=== PATIENT | female | born 1945 | race African-American/Black ===

== ENCOUNTER 2016-08-24 07:04 | Day surgery (SDC) | payer OTHER ==
[2016-08-22 10:12] VITALS: BMI 39.7
[2016-08-24] MEDS ORDERED: BUPIVACAINE HCL/PF 2.5 MG/ML - 30 ML VIAL IJ ONE (07:13)
[2016-08-24] MEDS ORDERED: PROPOFOL 20 ML ONE (09:09)
[2016-08-24] MEDS ORDERED: SUCCINYLCHOLINE CHLORIDE 200 MG/10 ML VIAL ONE (09:09)
[2016-08-24] MEDS ORDERED: ROCURONIUM BROMIDE 50 MG/5 ML VIAL ONE (09:09)
[2016-08-24] MEDS ORDERED: DESFLURANE GAS 240 ML BOTTLE IH ONE (09:26)
[2016-08-24] MEDS ORDERED: BUPIVACAINE HCL/PF 0.25% (2.5MG/ML) 10 ML VIAL IJ ONE (09:47)
[2016-08-24] MEDS ORDERED: oxyCODONE HCL 5 MG TABLET PO PRN (10:04)
[2016-08-24] MEDS ORDERED: LACTATED RINGERS SOLUTION 1,000 ML IV SCH (10:15)
[2016-08-24] MEDS ORDERED: oxyCODONE HCL 5 MG TABLET ONE (11:16)
[2016-08-24 11:28] VITALS: TEMP 97.7
[2016-08-24] MEDS ORDERED: ONDANSETRON *ODT* 4 MG TABLET ONE (12:36)
[2016-08-24 14:03] VITALS: PULSE 86
[2016-08-24 14:07] VITALS: BP 132/64
[2016-08-24] MEDS ORDERED: ONDANSETRON *ODT* 4 MG TABLET SL ONE (14:30)
--- NOTE | 2016-08-26 23:22 | OP ---
DATE OF OPERATION: 08/24/2016 SURGEON: Ba Lopez M.D. WATER PLUMBER: Ella Issa PREOPERATIVE DIAGNOSIS: 1. Right knee medial and lateral meniscal tear. 2. Right knee cartilage injury. 3. Right knee synovitis. POSTOPERATIVE DIAGNOSIS: 1. Right knee medial and lateral meniscal tear. 2. Right knee cartilage injury. 3. Right knee synovitis. PROCEDURE: 1. Right knee arthroscopy, partial meniscectomy, medial and lateral meniscus. 2. Right knee arthroscopy with chondroplasty and abrasion plasty. 3. Right knee arthroscopy, CPT code 08416, 53248, 25617. FINDINGS: 1. Medial meniscus body and posterior horn tear. 2. Lateral meniscus body tear. 3. Synovitis patella femoral medial and lateral notch area. 4. Medial 1/3 anterior tibial plateau grade 2-4 changes. 5. ACL and PCL intact. 6. Grade 1 to 2 cartilage injury diffuse lat joint. 7. Grade 1 to 2 cartilage injury patella, grade 2-4 changes patella femoral trochlea. PROCEDURE: Informed consent was obtained. The patient was taken to the operating room where the right lower extremity was prepped and draped in a sterile fashion. A tourniquet was placed on the right upper thigh but not inflated. Using standard arthroscopic technique, a lateral incision and portal were made which allowed for introduction of the camera into the suprapatellar bursa. This was then taken to the medial joint line where under direct visualization, a medial incision and portal were made. Excessive synovium noted in the medial, lateral, patellofemoral and notch area was removed by the up-biting shaver and Bovie cautery. This was found to bring inflammatory tissue into the joint surface, a source of joint pain and dysfunction. Probing of the medial and lateral meniscus found tears described in the findings. These were removed with an up-biting shaver and taken back to a stable rim. Grade 2-3 degenerative changes were treated with chondroplasty, removing all flaking surfaces with low setting Bovie used along the periphery. Grade 4 changes were treated with abrasion-plasty. All areas of the knee were once again re-examined. The knee was then drained. A single suture was placed on all portals. Sterile dressing was placed. The patient was transferred to the recovery room. BA LOPEZ M.D. MONIKA/[id number] MTDD
--- NOTE | 2016-08-28 16:19 | PATH ---
Surgical Pathology Report Patient Name: MIGUEL SANTANA [facility]. Rec. #: [id number] /Age/Gender: 1945 (Age: 71) / F Account: [id number] Location: [facility] Taken: 08/24/2016 Received: 08/24/2016 Reported: 08/28/2016 Physicians: Ba Ramos M.D. Specimen(s) Received RIGHT KNEE SHAVINGS Clinical History Right knee internal derangement Final Diagnosis KNEE, RIGHT, ARTHROSCOPIC SHAVINGS: FIBROSYNOVIAL AND FIBROCOLLAGENOUS TISSUE. Electronically Signed Bettina Howe M.D. Gross Description Received in formalin, labeled "right knee shavings," is a 4.0 x 3.2 x 0.3 cm. aggregate of reaves-yellow soft tissue fragments. A associate financial representative portion is submitted in one cassette. /08/24/201608/24/2016
== END 2016-08-24 13:30 | disposition home or self-care (01) ==
LOC: FASU 07:04
PROVIDERS: ATTEND Orthopaedic Surgery
PROC: 0SBC4ZZ Excision of Right Knee Joint, Percutaneous Endoscopic Approach (ICD-10-PCS; 2016-08-24)
PROC: 0SBC4ZZ Excision of Right Knee Joint, Percutaneous Endoscopic Approach (ICD-10-PCS; 2016-08-24)
PROC: 0SBC4ZZ Excision of Right Knee Joint, Percutaneous Endoscopic Approach (ICD-10-PCS; principal; 2016-08-24 08:30)
DX: S83.241A Other tear of medial meniscus, current injury, right knee, initial encounter (principal); S83.281A Other tear of lateral meniscus, current injury, right knee, initial encounter; S83.8X1A Sprain of other specified parts of right knee, initial encounter; M65.861 Other synovitis and tenosynovitis, right lower leg; X58.XXXA Exposure to other specified factors, initial encounter; Y93.9 Activity, unspecified; Y92.9 Unspecified place or not applicable
CPT/HCPCS: 88304-TC

== ENCOUNTER 2016-10-29 17:29 | Inpatient (IN) | payer OTHER ==
--- NOTE | 2016-10-29 17:53 | PDOC ---
History of Present Illness <Daysi Vigil - Last Filed: 10/29/16 19:12> - General History Source: Patient Exam Limitations: No Limitations - History of Present Illness Initial Comments: 10/29/16 18:25 71y/o F HTN, dm, high chol, CVA in the past presents referred from [facility] for evaluation of headache, r/o cva. Pt was in her usonh, went to bed around 10pm, awoke at 1am and 5am feeling well, then awoke at 1030am with severe L frontal headache also retro-orbital. n/v x2 nbnb, no vision change/speech change/focal weakness. no cp/sob/palp. Pt has h/o migraines in similar location but never to this severity. Pt went to [place] [facility] but [facility], went to her PMD at [facility] and was referred to ED for evaluation. Pt's headache has essentially resolved, she has a dull ache to her L roman catholic. <Virgil Borja - Last Filed: 10/29/16 20:03> - General Stated Complaint: CVA/TIA Time Seen by Provider: 10/29/16 17:46 NIH Stroke Scale - Last Known Well Date/Time & Onset Date Last Known Well: 10/29/16 Time Last Known Well: 05:00 - Initial Evaluation Level of consciousness: Alert Ask patient the month and their age: Answers both correctly Ask patient to open & close eyes; make fist and let go: Obeys both correctly Best gaze (horizontal eye movement): Normal Visual field testing: No visual field loss Facial paresis (Show teeth/raise eyebrows/close eyes tight): Normal symmetrical movement Motor Function: Left Arm: Normal Motor Function: Right Arm: Normal (extends arm 90 (or 45) degrees for 10 seconds without drift Motor Function: Left Leg: Normal (extends leg 30 degrees for 5 seconds without drift) Motor Function: Right Leg: Normal (extends leg 30 degrees for 5 seconds without drift) Limb Ataxia: No ataxia Sensory(Use pinprick test arms,legs,trunk,face/side to side): Normal Best language (Describe picture, name items, read sentences): No Aphasia Dysarthria (read several words): Normal articulation Extinction and Inattention: No abnormality - Total Score NIH Stroke Scale Score: 0 <Virgil Borja - Last Filed: 10/29/16 20:03> tPA Exclusion checklist 3-4.5h - Ineligibility reason(s) Reasons No tPA given: Outside of window - delayed arrival <Virgil Borja - Last Filed: 10/29/16 20:03> Past History <DanielleadrianoDaysi french - Last Filed: 10/29/16 19:12> - Past Medical History Anemia: No Asthma: No Cancer: No Cardiac Disorders: No CVA: Yes ('MINOR STROKE " 10 YRS AGO) COPD: No CHF: No Dementia: No Diabetes: Yes (OVER 7 YEARS) GI Disorders: No Disorders: No HTN: Yes Hypercholesterolemia: No Liver Disease: No Seizures: No Thyroid Disease: No - Surgical History Abdominal Surgery: Yes (UMBILICAL HERNIA REPAIR) Appendectomy: No Cardiac Surgery: No Cholecystectomy: Yes Lung Surgery: No Neurologic Surgery: No Orthopedic Surgery: Yes (LEFT ROTATOR CUFF REPAIR) - Psycho/Social/Smoking Cessation Hx Smoking History: Former smoker Have you smoked in the past 12 months: No If you are a former smoker, when did you quit?: 40 YRS AGO Hx Alcohol Use: Yes (SOCIALLY) Substance Use Type: Alcohol Hx Substance Use Treatment: No <Virgil Borja - Last Filed: 10/29/16 20:03> - Past Medical History Allergies/Adverse Reactions: Allergies Allergy/AdvReac Type Severity Reaction Status Date / Time Penicillins Allergy Severe Swelling Verified 08/22/16 09:59 Home Medications: Ambulatory Orders Amlodipine Besylate 5 mg PO DAILY 08/22/16 Aspirin [ASA -] 81 mg PO DAILY 08/22/16 Glucosamine Sulfate Dipot Chlr [Glucosamine] 1,000 mg PO DAILY 08/22/16 Insulin Glargine,Hum.rec.anlog [Lantus Solostar PEN -] 35 units SQ DAILY Multivit-Min/FA/Lycopen/Lutein [Centrum Silver Tablet] 1 each PO DAILY 08/22/16 Pioglitazone HCl/Metformin HCl [Actoplus Met 15 mg-850 mg Tab] 1 each PO DAILY 08/22/16 Valsartan/Hydrochlorothiazide [Valsartan-Hctz 160-12.5 mg Tab] 1 each PO DAILY 08/22/16 Hydrocodone/Acetaminophen [Shawnee 5-325 Tablet] 1 each PO Q6H PRN #40 tablet MDD 4 08/24/16 Ibuprofen 800 mg PO Q8H PRN #60 tablet MDD 3 08/24/16 Review of Systems - Review of Systems Constitutional: No: Chills, Fever HEENTM: No: Recent change in vision, Double Vision Respiratory: No: Cough, Shortness of Breath Cardiac (ROS): No: Chest Pain ABD/GI: Yes: Nausea, Vomiting. No: Constipated, Diarrhea Neurological: Yes: Headache. No: Tingling, Weakness, Ataxia, Dizziness All Other Systems: Reviewed and Negative <Virgil Borja - Last Filed: 10/29/16 20:03> *Physical Exam - Vital Signs Last Vital Signs Temp Pulse Resp BP Pulse Ox 98.1 F 70 20 124/67 98 10/29/16 17:48 10/29/16 17:48 10/29/16 17:48 10/29/16 17:48 10/29/16 17:48 <Daysi Vigil - Last Filed: 10/29/16 19:12> - Physical Exam Comments: 10/29/16 18:28 vss GENERAL: The patient is awake, alert, and fully oriented, in no acute distress. seated in wheelchair smiling, speaking full sentences. HEAD: Normal with no signs of trauma. no scalp ttp. EYES: PERRL, EOMI, sclera anicteric, conjunctiva clear with no pallor. ENT: oropharynx clear without exudates. Moist mucous membranes. NECK: Normal range of motion, supple without lymphadenopathy, JVD, or masses. LUNGS: Breath sounds equal, clear to auscultation bilaterally. No wheeze/ crackles. HEART: Regular rate and rhythm, normal S1 and S2 without murmur or rub. ABDOMEN: Soft/nontender/nondistended. BS wnl. No guarding or rebound. No palpable masses. No hepatosplenomegaly. EXTREMITIES: Normal range of motion, no edema. 2+ distal pulses. No cords, erythema, or tenderness. NEUROLOGICAL: nonfocal, see NIHSS PSYCH: Normal mood, normal affect. SKIN: Warm, Dry, no rashes or lesions noted. <Virgil Borja - Last Filed: 10/29/16 20:03> Heart Score/ECG Review #1 ECG reviewed & interpreted by me at: 17:53 General ECG Interpretation: Sinus Rhythm, Normal Rate (66), Normal Intervals, No acute ischemic changes <Virgil Borja - Last Filed: 10/29/16 20:03> ED Treatment Course - LABORATORY CBC & Chemistry Diagram: 10/29/16 19:00 10/29/16 19:00 - RADIOLOGY Radiology Studies Ordered: Category Date Time Status HEAD CT (STROKE) [CT] Stat CT Scan 10/29/16 17:46 Ordered CHEST X-RAY PORTABLE* [RAD] Stat Radiology 10/29/16 17:47 Ordered <Virgil Borja - Last Filed: 10/29/16 20:03> Medical Decision Making - Medical Decision Making 10/29/16 19:13 Dr. Rousseau was paged for neurology consult. <Daysi Vigil - Last Filed: 10/29/16 19:12> - Critical Care Time Total Critical Care Time (minutes): 30 Critical Care Statement: The care of this patient involved high complexity decision making to prevent further life threatening deterioration of the patient 's condition and/or to evalute & treat vital organ system(s) failure or risk of failure. - Medical Decision Making 10/29/16 18:30 71y/o F HTN, high chol, DM and h/o CVA and headaches p/w L temporal ARRIAGA this morning, now resolved. ? associated with facial weakness/tongue deviation at [facility] but neuro exam now normal. most concerning is hemorrhagic cva, less likely ischemic cva. could also be consistent with complex migraine. stroke protocol initiated. out of window code campos or tpa. neuro consult reassess, may require stroke on observation given the findings at [facility] 10/29/16 19:09 CT shows no bleed but small hypodensities concerning for ischemic cva. Will proceed with plan for admission to stroke unit. Give asa. neurology paged. 10/29/16 19:18 D/W Dr. Rousseau. Agrees with asa and stroke admission. Accepted for inpatient stroke by Dr. Jay Labs still pending, will f/u 10/29/16 20:03 cbc wnl. <Virgil Borja - Last Filed: 10/29/16 20:03> *DC/Admit/Observation/Transfer <Daysi Vigil - Last Filed: 10/29/16 19:12> - Discharge Dispostion Admit: Yes <Virgil Borja - Last Filed: 10/29/16 20:03> Diagnosis at time of Disposition: Headache Qualifiers: Headache type: unspecified Headache chronicity pattern: acute headache Intractability: not intractable Qualified Code(s): R51 - Headache CVA (cerebral vascular accident) Qualifiers: CVA mechanism: unspecified Qualified Code(s): I63.9 - Cerebral infarction, unspecified - Discharge Dispostion Condition at time of disposition: Fair - Referrals Referrals: Ana Lamar MD [Primary Care Provider] -
[2016-10-29 19:16] LABS: BASOPHIL 0.7 % (0-2.0); EOSINOPHIL 0.8 % (0-4.5); MCH 27.8 pg (25.7-33.7); MCHC 32.8 g/dl (32.0-36.0); MEAN CELL VOLUME 84.7 fl (80-96); MEAN PLT VOLUME 9.7 fl (7.5-11.1); PLATELET COUNT 243 K/MM3 (134-434); RDW 14.6 % (11.6-15.6); WHITE BLOOD COUNT 10.3 K/mm3 (4.0-10.0)
[2016-10-29] MEDS ORDERED: ASPIRIN 325 MG TABLET PO ONE (19:16)
[2016-10-29] MEDS ORDERED: ASPIRIN 325 MG TABLET ONE (19:19)
[2016-10-29 19:33] LABS: INR 1.08 (0.82-1.09); PROTHROMBIN TIME (PATIENT) 11.9 SEC (9.98-11.88)
[2016-10-29 19:45] LABS: URINE APPEARANCE CLEAR; URINE BILIRUBIN NEGATIVE (NEGATIVE); URINE BLOOD NEGATIVE (NEGATIVE); URINE COLOR LTYELLOW; URINE GLUCOSE (UA) 1+ (NEGATIVE); URINE KETONE NEGATIVE (NEGATIVE); URINE NITRITE NEGATIVE (NEGATIVE); URINE PROTEIN NEGATIVE (NEGATIVE); URINE UROBILINOGEN NEGATIVE E.U./dl (0.2-1.0)
[2016-10-29 19:51] LABS: URINE LEUK ESTERASE TRACE (NEGATIVE)
[2016-10-29 19:53] LABS: URINE BACTERIA MODERATE /hpf (NONE SEEN); URINE MUCUS RARE; URINE RBC 1 /hpf (0-3); URINE WBC 9 /hpf (3-5)
[2016-10-29 20:04] LABS: ALBUMIN 3.5 g/dl (3.4-5.0); ALK PHOS 72 U/L (45-117); ANION GAP 7 (8-16); BILIRUBIN,TOTAL 0.3 mg/dL (0.2-1.0); CALCIUM 9.5 mg/dL (8.5-10.1); CHOLESTEROL 192 mg/dL (50-200); CO2 28 mmol/L (21-32); GLUCOSE,RANDOM 101 mg/dL (74-106); LDL CHOLESTEROL (ONLY SJRH) 99 mg/dL (5-100); SGOT/AST 13 U/L (15-37); SGPT/ALT 22 U/L (12-78); TOT PROT 7.8 g/dl (6.4-8.2); TROPONIN I < 0.02 ng/ml (0.00-0.05)
--- NOTE | 2016-10-29 22:00 | HP ---
Admitting History and Physical - Primary Care Physician PCP: Robert Jay - Admission History of Present Illness: 71y/o F HTN, dm, high chol, CVA in the past presents referred from [facility] for evaluation of headache, r/o cva. Pt went to bed around 10pm, awoke at 1am and 5am feeling well, then awoke at 1030am with severe L frontal headache also retro -orbital. n/v x2 nbnb, no vision change/speech change/focal weakness. no cp/sob/ palp. Pt has h/o migraines in similar location but never to this severity. - Past Medical History DATA SOLUTIONS ARCHITECT: Yes: CVA Cardiovascular: Yes: HTN, Hyperlipdemia Endocrine: Yes: Diabetes Mellitus - Smoking History Smoking history: Former smoker Have you smoked in the past 12 months: No If you are a former smoker, when did you quit?: 40 YRS AGO - Alcohol/Substance Use Hx Alcohol Use: Yes (SOCIALLY) Home Medications - Allergies Allergies/Adverse Reactions: Allergies Allergy/AdvReac Type Severity Reaction Status Date / Time Penicillins Allergy Severe Swelling Verified 08/22/16 09:59 - Home Medications Home Medications: Ambulatory Orders Amlodipine Besylate 5 mg PO DAILY 08/22/16 Aspirin [ASA -] 81 mg PO DAILY 08/22/16 Glucosamine Sulfate Dipot Chlr [Glucosamine] 1,000 mg PO DAILY 08/22/16 Insulin Glargine,Hum.rec.anlog [Lantus Solostar PEN -] 35 units SQ DAILY Multivit-Min/FA/Lycopen/Lutein [Centrum Silver Tablet] 1 each PO DAILY 08/22/16 Pioglitazone HCl/Metformin HCl [Actoplus Met 15 mg-850 mg Tab] 1 each PO DAILY 08/22/16 Valsartan/Hydrochlorothiazide [Valsartan-Hctz 160-12.5 mg Tab] 1 each PO DAILY 08/22/16 Ibuprofen 800 mg PO Q8H PRN #60 tablet MDD 3 08/24/16 Insulin Glargine,Hum.rec.anlog [Lantus (10mL VIAL) -] 35 units SQ 10/30/16 Atorvastatin Ca [Lipitor] 10 mg PO HS #30 tablet 10/31/16 Physical Examination Vital Signs: Vital Signs Temperature 97.8 F 06/26/17 20:18 Pulse Rate 60 10/29/16 20:18 Respiratory Rate 20 10/29/16 20:18 Blood Pressure 105/53 10/29/16 20:18 O2 Sat by Pulse Oximetry (%) 99 10/29/16 20:18 Constitutional: Yes: No Distress HENT: Yes: Atraumatic Neck: Yes: Supple Cardiovascular: Yes: Regular Rate and Rhythm Respiratory: Yes: CTA Bilaterally Gastrointestinal: Yes: Normal Bowel Sounds Extremities: Yes: WNL Edema: No Peripheral Pulses WNL: Yes Neurological: Yes: Alert, Oriented ...Motor Strength: WNL Problem List - Problems (1) CVA (cerebral vascular accident) Assessment/Plan: head ct done mri/mra continue bp meds d/d tia migraine temporal arteritis neuro consult Code(s): I63.9 - CEREBRAL INFARCTION, UNSPECIFIED Qualifiers: CVA mechanism: unspecified Qualified Code(s): I63.9 - Cerebral infarction, unspecified (2) Headache Assessment/Plan: prn pain meds will check esr Code(s): R51 - HEADACHE Qualifiers: Headache type: unspecified Headache chronicity pattern: acute headache Intractability: not intractable Qualified Code(s): R51 - Headache (3) Diabetes Assessment/Plan: insulin, bgms oral hypoglycemics Code(s): E11.9 - TYPE 2 DIABETES MELLITUS WITHOUT COMPLICATIONS (4) HTN (hypertension) Assessment/Plan: on meds will monitor Code(s): I10 - ESSENTIAL (PRIMARY) HYPERTENSION Assessment/Plan Laboratory Tests 10/29/16 10/29/16 10/29/16 19:00 19:00 19:00 WBC 10.3 H RBC 4.47 Hgb 12.4 Hct 37.9 MCV 84.7 MCHC 32.8 RDW 14.6 Plt Count 243 MPV 9.7 Neutrophils % 66.0 Lymphocytes % 26.5 Monocytes % 6.0 Eosinophils % 0.8 Basophils % 0.7 INR 1.08 Sodium 137 Potassium 4.8 Chloride 102 Carbon Dioxide 28 Anion Gap 7 L BUN 25 H Creatinine 1.0 Creat Clearance w eGFR 54.97 Random Glucose 101 Calcium 9.5 Total Bilirubin 0.3 AST 13 L ALT 22 Alkaline Phosphatase 72 Creatine Kinase 89 Troponin I < 0.02 Total Protein 7.8 Albumin 3.5 Triglycerides 155 Cholesterol 192 Total LDL Cholesterol 99 HDL Cholesterol 70 H Urine Color Urine Appearance Urine pH Urine Protein Urine Glucose (UA) Urine Ketones Urine Blood Urine Nitrite Urine Bilirubin Urine Urobilinogen Ur Leukocyte Esterase Urine RBC Urine WBC Ur Epithelial Cells Urine Bacteria Urine Mucus Blood Type Antibody Screen 10/29/16 10/29/16 19:00 19:32 WBC RBC Hgb Hct MCV MCHC RDW Plt Count MPV Neutrophils % Lymphocytes % Monocytes % Eosinophils % Basophils % INR Sodium Potassium Chloride Carbon Dioxide Anion Gap BUN Creatinine Creat Clearance w eGFR Random Glucose Calcium Total Bilirubin AST ALT Alkaline Phosphatase Creatine Kinase Troponin I Total Protein Albumin Triglycerides Cholesterol Total LDL Cholesterol HDL Cholesterol Urine Color Ltyellow Urine Appearance Clear Urine pH 5.0 Urine Protein Negative Urine Glucose (UA) 1+ H Urine Ketones Negative Urine Blood Negative Urine Nitrite Negative Urine Bilirubin Negative Urine Urobilinogen Negative Ur Leukocyte Esterase Trace H Urine RBC 1 Urine WBC 9 Ur Epithelial Cells Rare Urine Bacteria Moderate Urine Mucus Rare Blood Type A POSITIVE Antibody Screen Negative Active Medications Generic Name Dose Route Start Last Admin Trade Name Freq PRN Reason Stop Dose Admin Acetaminophen 650 mg 10/30/16 13:14 Tylenol - PO Q6H PRN FEVER OR PAIN Amlodipine Besylate 5 mg 10/30/16 10:00 10/31/16 09:27 Norvasc - PO 5 mg DAILY SHIVANI Administration Aspirin 81 mg 10/30/16 10:00 10/31/16 09:27 Asa - PO 81 mg DAILY SHIVANI Administration Ibuprofen 800 mg 10/29/16 22:01 Motrin - PO Q8H PRN PAIN Insulin Aspart 1 vial 10/30/16 22:00 10/31/16 12:00 Novolog Vial Sliding Scale - SQ Not Given ACHS [facility] Protocol Insulin Detemir 25 units 10/31/16 07:00 10/31/16 06:00 Levemir Vial SQ 25 unit AM SHIVANI Administration
[2016-10-29] MEDS ORDERED: IBUPROFEN 400 MG TABLET (FP) PO PRN (22:01)
[2016-10-30 03:17] VITALS: BMI 40.1
[2016-10-30 07:35] LABS: BASOPHIL 0.3 % (0-2.0); EOSINOPHIL 1.4 % (0-4.5); MCH 28.8 pg (25.7-33.7); MCHC 33.7 g/dl (32.0-36.0); MEAN CELL VOLUME 85.2 fl (80-96); MEAN PLT VOLUME 9.3 fl (7.5-11.1); NEUTROPHILS 60.7 % (42.8-82.8); PLATELET COUNT 190 K/MM3 (134-434); RDW 14.7 % (11.6-15.6); WHITE BLOOD COUNT 9.8 K/mm3 (4.0-10.0)
--- NOTE | 2016-10-30 08:17 | CON.NEURO ---
Consult - History of Present Illness History of Present Illness: 71y/o F HTN, dm, high chol, CVA in the past, awoke with L ARRIAGA yesterday--went to [place]; left AMA because felt she was not being treated; then presents went to [facility] for evaluation of headache later in day, r/o cva. as per daughter, CARPENTRY INSTRUCTOR there , felt she had left sided weakness, ? tongue was twisted . Pt went to bed around 10pm, awoke at 1am and 5am feeling well, then awoke at 1030am with severe L frontal headache also retro-orbital. n/v x2 nbnb, no vision change/ speech change/focal weakness. no cp/sob/palp. denies migraines. Feels ARRIAGA better about 7 PM yesterday. denies weakness now. CT HD : possible R BG lacune. - Past Medical History OFFICE ASST: Yes: CVA Cardio/Vascular: Yes: HTN, Hyperlipdemia ...: No Endocrine: Yes: Diabetes Mellitus - Alcohol/Substance Use Hx Alcohol Use: Yes (1-2 drinks per year) - Smoking History Smoking history: Former smoker Have you smoked in the past 12 months: No If you are a former smoker, when did you quit?: 40 YRS AGO Home Medications - Allergies Allergies/Adverse Reactions: Allergies Allergy/AdvReac Type Severity Reaction Status Date / Time Penicillins Allergy Severe Swelling Verified 08/22/16 09:59 - Home Medications Home Medications: Ambulatory Orders Amlodipine Besylate 5 mg PO DAILY 08/22/16 Aspirin [ASA -] 81 mg PO DAILY 08/22/16 Glucosamine Sulfate Dipot Chlr [Glucosamine] 1,000 mg PO DAILY 08/22/16 Insulin Glargine,Hum.rec.anlog [Lantus Solostar PEN -] 35 units SQ DAILY Multivit-Min/FA/Lycopen/Lutein [Centrum Silver Tablet] 1 each PO DAILY 08/22/16 Pioglitazone HCl/Metformin HCl [Actoplus Met 15 mg-850 mg Tab] 1 each PO DAILY 08/22/16 Valsartan/Hydrochlorothiazide [Valsartan-Hctz 160-12.5 mg Tab] 1 each PO DAILY 08/22/16 Ibuprofen 800 mg PO Q8H PRN #60 tablet MDD 3 08/24/16 Review of Systems - Review of Systems Constitutional: reports: No Symptoms Physical Exam-Neuro Vital Signs: Vital Signs Temperature 98 F 10/30/16 06:10 Pulse Rate 72 10/30/16 06:10 Respiratory Rate 20 10/30/16 06:10 Blood Pressure 114/64 10/30/16 06:10 O2 Sat by Pulse Oximetry (%) 98 10/29/16 23:00 Constitutional: Yes: Well Nourished, No Distress Neck: Yes: Supple Cardiovascular: Yes: Regular Rate and Rhythm Labs: CBC, [facility] [facility] 10/30/16 06:30 INR, PTT INR 1.08 (0.82-1.09) 10/29/16 19:00 CBC, [facility] [facility] 10/30/16 06:30 - Neuro Exam Level Of Consciousness: Yes: Alert, Oriented to Person (EOMI, slight ptosis L eye (baseline), no facial, motor 5/5, reflxes symmetric ) NIH Stroke Scale - Last Known Well Date/Time & Onset Symptom Onset Date: 10/29/16 Symptom Onset Time: 10:30 Date Last Known Well: 10/28/16 Time Last Known Well: 05:30 - Initial Evaluation Level of consciousness: Alert Ask patient the month & their age: Answers Both Correctly Ask Patient to open & close eyes; make fist and let go.: Obeys Both Correctly Best gaze (horizontal eye movement): Normal Visual Field Testing: No Visual Loss Facial Palsy(Show teeth or raise eyebrows & close eyes: Normal Symmetrical Movements. Motor Function - Left Arm: No Drift;extends limb 90 (or siting 45) degress & hold full 10 seconds Motor Function - Right Arm: No Drift;extends limb 90 (or siting 45) degress & hold full 10 seconds Motor Function - Left Leg: No Drift; leg holds 30 degree position for full 5 seconds. Motor Function - Right Leg: No Drift; leg holds 30 degree position for full 5 seconds. Limb Ataxia: Absent (also used for the pt who does not understand or paralyzed) Sensory (arms, legs, trunk, face): Normal; no sensory loss Best Language: No Aphasia; normal Dysarthria/Articulation: Normal Extinction and Inattention: No abnormality - Total Score NIH Stroke Scale Score: 0 Imaging - Results Cat Scan: Report Reviewed, Image Reviewed (10/29/16 Status: JOSSY Valdez [id number] Unit Number: [id number] EXAM#: TYPE/EXAM: RESULT: [id number] CT/HEAD CT (STROKE) Cranial CT without contrast Clinical information: evaluate for CVA No intracranial hemorrhage is seen. Focal hypodensity without obvious mass effect is seen within the anterior limb of the left internal capsule and the adjacent subinsular region most suggestive of ischemic change of indeterminate age on the basis of this exam. There is also a small somewhat subtle hypodense focus within the right putamen posteriorly adjacent to the posterior limb of the right internal capsule also suggestive of focal ischemia of indeterminate age. There is no extra-axial fluid collection. No obvious mass lesion is noted on noncontrast imaging. The ventricles and cisterns appear unremarkable. Impression: Small bilateral cerebral ischemic foci are noted as discussed above of indeterminate age on the basis of this exam. Correlate with MRI, nonemergent versus emergent as clinically indicated.) Problem List - Problems (1) CVA (cerebral vascular accident) Code(s): I63.9 - CEREBRAL INFARCTION, UNSPECIFIED Qualifiers: CVA mechanism: unspecified Qualified Code(s): I63.9 - Cerebral infarction, unspecified (2) Headache Code(s): R51 - HEADACHE Qualifiers: Headache type: unspecified Headache chronicity pattern: acute headache Intractability: not intractable Qualified Code(s): R51 - Headache Assessment/Plan 71y/o F HTN, dm, high chol, CVA in the past, presents for left sided ARRIAGA and transient left sided weakness--sx appear resolved. R/O TIA , vs dissection vs less likely temporal arteritis vs migraine variant CT HD : possible R BG lacune. check MRI BRAIN , MRA neck ESR, CRP LIPDS, A1c tylenol for pain ASA ok in meantime Thank you and will FU - Dr Rousseau
[2016-10-30] MEDS: amLODIPine BESYLATE 5 MG TABLET (FP) PO SCH (09:20)
[2016-10-30] MEDS: ASPIRIN 81 MG CHEWABLE TABLETS PO SCH (09:20)
[2016-10-30 09:39] LABS: ALBUMIN 3.4 g/dl (3.4-5.0); ALK PHOS 67 U/L (45-117); ANION GAP 10 (8-16); BILIRUBIN,TOTAL 0.3 mg/dL (0.2-1.0); CALCIUM 9.4 mg/dL (8.5-10.1); CO2 26 mmol/L (21-32); GLUCOSE,RANDOM 139 mg/dL (74-106); SGOT/AST 15 U/L (15-37); SGPT/ALT 21 U/L (12-78); TOT PROT 7.3 g/dl (6.4-8.2)
--- NOTE | 2016-10-30 11:37 | EKG ---
Test Reason : Blood Pressure : / mmHG Vent. Rate : 066 BPM Atrial Rate : 066 BPM P-R Int : 168 ms QRS Dur : 078 ms QT Int : 368 ms P-R-T Axes : 052 037 048 degrees QTc Int : 385 ms NORMAL SINUS RHYTHM WITH SINUS ARRHYTHMIA NORMAL ECG WHEN COMPARED WITH ECG OF 31-MAR-2002 22:20, NO SIGNIFICANT CHANGE WAS FOUND Confirmed by BAYRON BRIDGES MD ([id number]) on 10/30/2016 11:37:27 AM Referred By: Confirmed By:BAYRON BRIDGES MD
[2016-10-30] MEDS ORDERED: ACETAMINOPHEN 325 MG TABLET (FP) PO PRN (13:14)
--- NOTE | 2016-10-30 16:41 | PN ---
Progress Note, Physician History of Present Illness: doing well headache much better - Current Medication List Current Medications: Active Medications Acetaminophen (Tylenol -) 650 mg PO Q6H PRN PRN Reason: FEVER OR PAIN Amlodipine Besylate (Norvasc -) 5 mg PO DAILY [facility] Last Admin: 10/30/16 09:20 Dose: 5 mg Aspirin (Asa -) 81 mg PO DAILY [facility] Last Admin: 10/30/16 09:20 Dose: 81 mg Ibuprofen (Motrin -) 800 mg PO Q8H PRN PRN Reason: PAIN Insulin Aspart (Novolog Vial Sliding Scale -) 1 vial SQ ACHS [facility] PRN Reason: Protocol Insulin Detemir (Levemir Vial) 25 units SQ AM [facility] - Objective Vital Signs: Vital Signs Temperature 98.0 F 10/30/16 15:15 Pulse Rate 66 10/30/16 15:15 Respiratory Rate 14 10/30/16 15:15 Blood Pressure 151/66 10/30/16 15:15 O2 Sat by Pulse Oximetry (%) 98 10/30/16 09:00 Constitutional: Yes: No Distress HENT: Yes: Atraumatic Neck: Yes: Supple Cardiovascular: Yes: Regular Rate and Rhythm Respiratory: Yes: CTA Bilaterally Gastrointestinal: Yes: Normal Bowel Sounds Extremities: Yes: WNL Peripheral Pulses WNL: No Neurological: Yes: Alert, Oriented Labs: CBC, BMP 10/30/16 06:30 10/30/16 06:30 INR, PTT INR 1.08 (0.82-1.09) 10/29/16 19:00 Problem List - Problems (1) CVA (cerebral vascular accident) Assessment/Plan: mri/mra done report reviewed awaiting neuro input Code(s): I63.9 - CEREBRAL INFARCTION, UNSPECIFIED Qualifiers: CVA mechanism: unspecified Qualified Code(s): I63.9 - Cerebral infarction, unspecified (2) Headache Assessment/Plan: much bettr prn tylenol Code(s): R51 - HEADACHE Qualifiers: Headache type: unspecified Headache chronicity pattern: acute headache Intractability: not intractable Qualified Code(s): R51 - Headache
[2016-10-30] MEDS: INSULIN SLIDING SCALE (NOVOLOG) 1 VIAL SQ SCH (21:37)
[2016-10-31] MEDS: INSULIN SLIDING SCALE (NOVOLOG) 1 VIAL SQ SCH ×3 (06:00→17:20)
[2016-10-31] MEDS ORDERED: INSULIN (NOVOLOG) ASPART 100 UNITS/ML 10ML VIAL ONE (06:29)
[2016-10-31] MEDS ORDERED: INSULIN DETEMIR 100 UNITS/ML MDV SQ SCH (07:00)
[2016-10-31] MEDS: ASPIRIN 81 MG CHEWABLE TABLETS PO SCH (09:27)
[2016-10-31] MEDS: amLODIPine BESYLATE 5 MG TABLET (FP) PO SCH (09:27)
--- NOTE | 2016-10-31 11:28 | PN ---
Progress Note (short form) - Note Progress Note: 71y/o F HTN, dm, high chol, CVA in the past, awoke with L ARRIAGA yesterday--went to [place]; left AMA because felt she was not being treated; then presents went to [facility] for evaluation of headache later in day, r/o cva. 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 tongue was twisted . Pt went to bed around 10pm, awoke at 1am and 5am feeling well, then awoke at 1030am with severe L frontal headache also retro-orbital. n/v x2 nbnb, no vision change/ speech change/focal weakness. no cp/sob/palp. denies migraines. Feels ARRIAGA better about 7 PM yesterday. denies weakness now. CT HD : possible R BG lacune. FU: slight ARRIAGA, though no new c/o, feeling better admits stress discussed labs and scan ESR 55, CRP 1.5 10/30/16 TYPE/EXAM: RESULT: [id number] MRI/NECK MRA W/O CONTRAST Headache with left-sided weakness. MRA of the neck noncontrast study. Source data images were obtained with reconstruction 2-D entire neck, 3-D of the bifurcation of the bilateral common carotid arteries. Limited study due to the extensive motion artifacts. Patent common carotid arteries without stenosis. Patent bilateral vertebral arteries/ Normal contour of the arterial vessel is seen on the source data images. No significant hemodynamic stenotic lesions are seen within the limitation of examination at the bifurcation of the common carotid arteries. Impression. Limited examination. Extensive motion artifacts. Patent bilateral vertebral arteries, common, internal, external carotid arteries. No hemodynamically stenotic lesions are seen within limitation of examination at the bifurcation of common carotid arteries. 10/30/16 TYPE/EXAM: RESULT: [id number] MRI/BRAIN MRI W/O CONTRAST History of left -sided weakness rule out stroke. MRI of the brain without IV contrast enhancement. Multiple pulse sequences were completed utilizing the [employer] 1.5T. Supportie MRI system. Sagittal, coronal: T1. Axial: T2, FLAIR, T2 gradient echo, diffusion-weighted. Coronal. T1 FLAIR. Comparison study CT brain C-, October 29, 2016 Findings. The intracranial contents are shown well from the dailey magnum to the cranial vertex. The brain parenchyma displays normal signal intensity characteristics and architectural features throughout the entire cranial vault. No acute stroke is seen on diffusion-weighted images. There is no mass effect, midline shift, intra or extra axial collections. The CSF spaces are age- appropriate. Brainstem gliosis is noted. Supratentorial chronic white matter microangiopathic ischemic changes involving the vangie-insular white matter tracts (left greater than the right), left anterior limb of internal capsule, left anterior rocha radiata with multiple hyperintense foci in the rocha radiata, centrum semiovale. Small lacunar infarcts versus perivascular spaces in the head of the right caudate nucleus. Perivascular spaces noted in the basal ganglia. The major caliber vascular structures including the [place] of [place] and peripheral dural venous sinuses show normal signal characteristics. Small aneurysm is seen in the region of the bifurcation of the right internal carotid artery. No abnormality seen in the pontomedullary junction region. No evidence of tonsillar ectopia. No abnormalities are seen in the sella, suprasellar region. Normal pituitary infundibulum optic chiasm. Normal signal intensity of the calvarium. Impression. No acute infarct is seen on diffusion- weighted images. Brainstem gliosis. Supratentorial chronic white matter microangiopathic ischemic changes, gliosis. 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 Cardio/Vascular: Yes: HTN, Hyperlipdemia ...: No Endocrine: Yes: Diabetes Mellitus - Alcohol/Substance Use Hx Alcohol Use: Yes (1-2 drinks per year) - Smoking History Smoking history: Former smoker Have you smoked in the past 12 months: No If you are a former smoker, when did you quit?: 40 YRS AGO Home Medications - Allergies Allergies/Adverse Reactions: Allergies Allergy/AdvReac Type Severity Reaction Status Date / Time Penicillins Allergy Severe Swelling Verified 08/22/16 09:59 - Home Medications Home Medications: Ambulatory Orders Amlodipine Besylate 5 mg PO DAILY 08/22/16 Aspirin [ASA -] 81 mg PO DAILY 08/22/16 Glucosamine Sulfate Dipot Chlr [Glucosamine] 1,000 mg PO DAILY 08/22/16 Insulin Glargine,Hum.rec.anlog [Lantus Solostar PEN -] 35 units SQ DAILY Multivit-Min/FA/Lycopen/Lutein [Centrum Silver Tablet] 1 each PO DAILY 08/22/16 Pioglitazone HCl/Metformin HCl [Actoplus Met 15 mg-850 mg Tab] 1 each PO DAILY 08/22/16 Valsartan/Hydrochlorothiazide [Valsartan-Hctz 160-12.5 mg Tab] 1 each PO DAILY 08/22/16 Ibuprofen 800 mg PO Q8H PRN #60 tablet MDD 3 08/24/16 Review of Systems - Review of Systems Constitutional: reports: No Symptoms Physical Exam-Neuro Vital Signs: Vital Signs Temperature 98.4 F 10/31/16 10:00 Pulse Rate 84 10/31/16 10:00 Respiratory Rate 20 10/31/16 10:00 Blood Pressure 119/56 10/31/16 10:00 O2 Sat by Pulse Oximetry (%) 98 10/30/16 21:00 Constitutional: Yes: Well Nourished, No Distress Neck: Yes: Supple Cardiovascular: Yes: Regular Rate and Rhythm Labs: CBCD WBC 9.8 K/mm3 (4.0-10.0) 10/30/16 06:30 RBC 4.46 M/mm3 (3.60-5.2) 10/30/16 06:30 Hgb 12.8 GM/dL (10.7-15.3) 10/30/16 06:30 Hct 38.1 % (32.4-45.2) 10/30/16 06:30 MCV 85.2 fl (80-96) 10/30/16 06:30 MCHC 33.7 g/dl (32.0-36.0) 10/30/16 06:30 RDW 14.7 % (11.6-15.6) 10/30/16 06:30 Plt Count 190 K/MM3 (134-434) D 10/30/16 06:30 MPV 9.3 fl (7.5-11.1) 10/30/16 06:30 CMP Sodium 141 mmol/L (136-145) 10/30/16 06:30 Potassium 4.4 mmol/L (3.5-5.1) 10/30/16 06:30 Chloride 105 mmol/L (98-107) 10/30/16 06:30 Carbon Dioxide 26 mmol/L (21-32) 10/30/16 06:30 Anion Gap 10 (8-16) 10/30/16 06:30 BUN 24 mg/dL (7-18) H 10/30/16 06:30 Creatinine 1.0 mg/dL (0.55-1.02) 10/30/16 06:30 Creat Clearance w eGFR 54.97 (>60) 10/30/16 06:30 Calcium 9.4 mg/dL (8.5-10.1) 10/30/16 06:30 Total Bilirubin 0.3 mg/dL (0.2-1.0) 10/30/16 06:30 AST 15 U/L (15-37) 10/30/16 06:30 ALT 21 U/L (12-78) 10/30/16 06:30 Alkaline Phosphatase 67 U/L (45-117) 10/30/16 06:30 Total Protein 7.3 g/dl (6.4-8.2) 10/30/16 06:30 Albumin 3.4 g/dl (3.4-5.0) 10/30/16 06:30 - Neuro Exam Level Of Consciousness: Yes: Alert, Oriented to Person (EOMI, slight ptosis L eye (baseline), no facial, motor 5/5, reflxes symmetric ) NIH Stroke Scale - Last Known Well Date/Time & Onset Symptom Onset Date: 10/29/16 Symptom Onset Time: 10:30 Date Last Known Well: 10/28/16 Time Last Known Well: 05:30 - Initial Evaluation Level of consciousness: Alert Ask patient the month & their age: Answers Both Correctly Ask Patient to open & close eyes; make fist and let go.: Obeys Both Correctly Best gaze (horizontal eye movement): Normal Visual Field Testing: No Visual Loss Facial Palsy(Show teeth or raise eyebrows & close eyes: Normal Symmetrical Movements. Motor Function - Left Arm: No Drift;extends limb 90 (or siting 45) degress & hold full 10 seconds Motor Function - Right Arm: No Drift;extends limb 90 (or siting 45) degress & hold full 10 seconds Motor Function - Left Leg: No Drift; leg holds 30 degree position for full 5 seconds. Motor Function - Right Leg: No Drift; leg holds 30 degree position for full 5 seconds. Limb Ataxia: Absent (also used for the pt who does not understand or paralyzed) Sensory (arms, legs, trunk, face): Normal; no sensory loss Best Language: No Aphasia; normal Dysarthria/Articulation: Normal Extinction and Inattention: No abnormality - Total Score NIH Stroke Scale Score: 0 Imaging - Results Cat Scan: Report Reviewed, Image Reviewed (10/29/16 Status: JOSSY [id number] Unit Number: [id number] EXAM#: TYPE/EXAM: RESULT: CT/HEAD CT (STROKE) Cranial CT without contrast Clinical information: evaluate for CVA No intracranial hemorrhage is seen. Focal hypodensity without obvious mass effect is seen within the anterior limb of the left internal capsule and the adjacent subinsular region most suggestive of ischemic change of indeterminate age on the basis of this exam. There is also a small somewhat subtle hypodense focus within the right putamen posteriorly adjacent to the posterior limb of the right internal capsule also suggestive of focal ischemia of indeterminate age. There is no extra-axial fluid collection. No obvious mass lesion is noted on noncontrast imaging. The ventricles and cisterns appear unremarkable. Impression: Small bilateral cerebral ischemic foci are noted as discussed above of indeterminate age on the basis of this exam. Correlate with MRI, nonemergent versus emergent as clinically indicated.) Problem List - Problems (1) CVA (cerebral vascular accident) Code(s): I63.9 - CEREBRAL INFARCTION, UNSPECIFIED Qualifiers: CVA mechanism: unspecified Qualified Code(s): I63.9 - Cerebral infarction, unspecified (2) Headache Code(s): R51 - HEADACHE Qualifiers: Headache type: unspecified Headache chronicity pattern: acute headache Intractability: not intractable Qualified Code(s): R51 - Headache Assessment/Plan 71y/o F HTN, dm, high chol, CVA in the past, presents for left sided ARRIAGA and transient left sided weakness--sx appear resolved. possible TIA, no acute chnages on MRI, chronic white matter changes borderline elevated ESR-- less likely temporal arteritis--would repeat in 2 weeks and FU. ASA, will add statin (even with NL lipids) given prior stroke HX , microangiopathic changes on MRI can Dc from neuro stand point and FU as outpt thanks Dr Rousseau [phone] Problem List - Problems (1) CVA (cerebral vascular accident) Code(s): I63.9 - CEREBRAL INFARCTION, UNSPECIFIED Qualifiers: CVA mechanism: unspecified Qualified Code(s): I63.9 - Cerebral infarction, unspecified (2) Headache Code(s): R51 - HEADACHE Qualifiers: Headache type: unspecified Headache chronicity pattern: acute headache Intractability: not intractable Qualified Code(s): R51 - Headache
[2016-10-31] MEDS ORDERED: ATORVASTATIN CA 10 MG TABLET (FP) PO ONE (11:50)
[2016-10-31 15:33] VITALS: BP 118/59; PULSE 70; TEMP 97.9
--- NOTE | 2016-10-31 17:02 | DS ---
Physical Examination Vital Signs: Vital Signs Temperature 97.9 F 10/31/16 14:30 Pulse Rate 70 10/31/16 14:30 Respiratory Rate 20 10/31/16 14:30 Blood Pressure 118/59 10/31/16 14:30 O2 Sat by Pulse Oximetry (%) 98 10/31/16 09:00 Constitutional: Yes: No Distress HENT: Yes: Atraumatic Neck: Yes: Supple Cardiovascular: Yes: Regular Rate and Rhythm Respiratory: Yes: CTA Bilaterally Gastrointestinal: Yes: Normal Bowel Sounds Extremities: Yes: WNL Edema: No Neurological: Yes: Alert, Oriented Labs: CBC, BMP 10/30/16 06:30 10/30/16 06:30 Discharge Summary Reason For Visit: CVA Current Active Problems CVA (cerebral vascular accident) (Acute) Headache (Acute) Condition: Fair - Instructions Diet, Activity, Other Instructions: follow up neurology 2 weeks esr needs to be checked again Referrals: Ana Lamar MD [Primary Care Provider] - - Home Medications Comprehensive Discharge Medication List: Ambulatory Orders Amlodipine Besylate 5 mg PO DAILY 08/22/16 Aspirin [ASA -] 81 mg PO DAILY 08/22/16 Glucosamine Sulfate Dipot Chlr [Glucosamine] 1,000 mg PO DAILY 08/22/16 Insulin Glargine,Hum.rec.anlog [Lantus Solostar PEN -] 35 units SQ DAILY Multivit-Min/FA/Lycopen/Lutein [Centrum Silver Tablet] 1 each PO DAILY 08/22/16 Pioglitazone HCl/Metformin HCl [Actoplus Met 15 mg-850 mg Tab] 1 each PO DAILY 08/22/16 Valsartan/Hydrochlorothiazide [Valsartan-Hctz 160-12.5 mg Tab] 1 each PO DAILY 08/22/16 Ibuprofen 800 mg PO Q8H PRN #60 tablet MDD 3 08/24/16 Insulin Glargine,Hum.rec.anlog [Lantus (10mL VIAL) -] 35 units SQ 10/30/16 Atorvastatin Ca [Lipitor] 10 mg PO HS #30 tablet 10/31/16 dc home follow up pmd and neurology 1-2 weeks
== END 2016-10-31 18:52 | disposition home or self-care (01) | DRG 65 ==
LOC: JER 17:29 → JERBED 20:02 → J4S 23:09
PROVIDERS: ADMIT Internal Medicine; ATTEND Internal Medicine
DX: I63.9 Cerebral infarction, unspecified (principal); I69.354 Hemiplegia and hemiparesis following cerebral infarction affecting left non-dominant side; H02.402 Unspecified ptosis of left eyelid; I10 Essential (primary) hypertension; R51 Headache; E11.9 Type 2 diabetes mellitus without complications; Z79.4 Long term (current) use of insulin; E78.00 Pure hypercholesterolemia, unspecified
CPT/HCPCS: 36415; 70450-TC; 70544-TC; 70547-TC; 70551-TC; 71010-TC; 80053; 81003; 81015; 82465; 82550; 83718; 83721; 84478; 84484; 85025; 85610; 85651; 86140; 86850; 86900; 86901; 93005; 93010; 99285-25

== ENCOUNTER 2022-09-03 18:25 | Emergency (ER) | payer OTHER ==
[2022-09-03 19:13] VITALS: BMI 39.6
[2022-09-03 20:12] LABS: INR 1.44 (0.83-1.09); PROTHROMBIN TIME (PATIENT) 16.7 SEC (9.7-13.0)
[2022-09-03 20:15] LABS: ACTIVATED PTT 40.4 SECONDS (25.2-36.5)
[2022-09-03 20:32] LABS: BASO % 0.5 % (0-2.0); EOS % 1.3 % (0-4.5); HEMATOCRIT 35.8 % (32.4-45.2); LYMPH % 30.7 % (8-40); MCH 29.1 pg (25.7-33.7); MCHC 33.6 g/dl (32.0-36.0); MEAN CELL VOLUME 86.4 fl (80-96); MEAN PLT VOLUME 9.2 fl (7.5-11.1); MONO % 8.7 % (3.8-10.2); NEUT % 58.8 % (42.8-82.8); PLATELET COUNT 189 10^3/uL (134-434); RBC 4.14 M/mm3 (3.60-5.2); RDW 15.3 % (11.6-15.6)
[2022-09-03 20:39] LABS: POTASSIUM 3.8 mmol/L (3.5-5.1)
[2022-09-03 20:41] LABS: CALCIUM 8.4 mg/dL (8.5-10.1)
[2022-09-03 20:42] LABS: ALBUMIN 3.1 g/dl (3.4-5.0); BLOOD UREA NITROGEN 16.1 mg/dL (7-18)
[2022-09-03 20:45] LABS: CREATININE 0.9 mg/dL (0.55-1.3)
[2022-09-03 20:46] LABS: TOT PROT 6.9 g/dl (6.4-8.2)
[2022-09-03 20:47] LABS: BILIRUBIN,TOTAL 0.4 mg/dL (0.2-1)
[2022-09-03] MEDS ORDERED: ASPIRIN 81 MG CHEWABLE TABLETS ONE (21:16)
[2022-09-03] MEDS ORDERED: ASPIRIN 81 MG CHEWABLE TABLETS PO ONE (21:16)
[2022-09-03 22:09] VITALS: BP 145/80; PULSE 85; RESP 16
== END 2022-09-03 21:45 | disposition short-term general hospital (02) ==
LOC: JER 18:25
DX: R20.2 Paresthesia of skin (principal); R47.9 Unspecified speech disturbances; G45.9 Transient cerebral ischemic attack, unspecified
CPT/HCPCS: 36415; 70450-TC; 70496-TC; 70498-TC; 80053; 80061; 82550; 83036; 84484; 85025; 85610; 85730; 86850; 86900; 86901; 93005; 93010; 99285-25